=== PATIENT | male | born 1950 | race Caucasian/White ===

== ENCOUNTER 2020-02-19 13:28 | Outpatient (CLI) | payer OTHER, SELFPAY ==
--- NOTE | ~2020-02-19 | US_ITS ---
US renal BI 02/19/2020 14:23 Procedure: Realtime transabdominal ultrasound of the kidneys and bladder. Indication: Kidney disease Comparison: Ultrasound dated 12/27/2010 Findings: Renal echotexture is normal bilaterally without hydronephrosis, or renal calculus. There ar e multiple bilateral renal cysts measuring up to 7.1 cm and the right kidney and 2.6 cm and the left kidney. The right kidney measures 11.6 cm and left kidney measures 11.1 cm. Bladder within normal li mits. Impression: 1: Multiple bilateral renal cysts. Reviewed, dictated and finalized at location A. Impression: 1: Multiple bilateral renal cysts.
== END 2020-02-19 13:29 | disposition home or self-care (01) ==
PROVIDERS: PCP Emergency Medicine; Visit Provider Internal Medicine Nephrology
DX: N18.3 Chronic kidney disease, stage 3 (moderate) (principal); N28.1 Cyst of kidney, acquired
CPT/HCPCS: 76775

== ENCOUNTER 2020-03-26 09:21 | Emergency (ER) | payer OTHER, SELFPAY ==
[2020-03-26 09:43] VITALS: BP 138/90; PULSE 64; RESP 16; TEMP 37.1; O2SAT 99
--- NOTE | 2020-03-26 09:59 | ED.GENADULT ---
HPI - General Adult General Chief complaint: Eye Problems Stated complaint: REDNESS BILATERAL EYES Time Seen by Provider: 03/26/20 10:01 Source: patient and RN notes reviewed Mode of arrival: ambulatory Limitations: no limitations History of Present Illness HPI narrative: This is a 70 years old male presented office for evaluation of bilateral eyelids redness and swelling for a week.Worse this morning. He tried Claritin D for his symptoms with no relief. He tried to call his doctor who could not get him in. Denies visual changes. He admits to wearing glasses for reading only. Denies sick contact. Related Data Home Medications Medication Instructions Recorded Confirmed clotrimazole 1 % topical cream 1 applic TOPICAL Q12H 08/06/19 03/26/20 fluocinonide 0.05 % topical 1 applic TOPICAL BID 08/06/19 03/26/20 ointment fluticasone propionate 50 1 spray NASAL DAILY 08/06/19 03/26/20 mcg/actuation nasal spray,suspension olmesartan 40 mg tablet 40 mg PO DAILY 08/06/19 03/26/20 testosterone cypionate 100 mg/mL 50 mg IM WEEKLY ml 08/06/19 03/26/20 intramuscular oil zolpidem 10 mg tablet 10 mg PO ONCE tablet 08/06/19 03/26/20 Allergies Allergy/AdvReac Type Severity Reaction Status Date / Time No Known Allergies Allergy Verified 03/26/20 10:04 Review of Systems Review of Systems: Narrative: CONSTITUTIONAL: Denies fever EYES: Denies visual changes or discharge. Reports bilateral upper and lower eyelids red, itchy ENT: Denies rhinorrhea, congestion, sore throat, otalgia. CARDIOVASCULAR: Denies chest pain, palpitation RESPIRATORY: Denies dyspnea, wheezing, cough GASTROINTESTINAL: Denies abdominal pain, nausea, vomiting SKIN: Denies rash MUSCULOSKELETAL: Denies acute back pain NEUROLOGIC: Denies lightheaded All other systems reviewed are negative, except as documented in HPI. [facility] Past Medical History Medical History (Updated 03/26/20 @ 10:15 by SREEKANTH Zarate) CKD (chronic kidney disease), stage III HLD (hyperlipidemia) HTN (hypertension) Hypogonadism Family History Family History Sibling Acute myocardial infarction Family history of malignant neoplasm Father Family history of kidney disease, Onset Age: 58 Social History Social History Smoking status: Former smoker Smoking end date: 08/12/80 Gender identity (if verbalized by the patient): Male Comments At time of signature, I agree with nursing past medical, surgical, social and family history. There is no relevant family history pertinent to the presenting complaint. Exam Narrative: Exam Narrative: GENERAL: This is a well-nourished, well-developed patient, in no apparent distress. EYES: PERRL. EMOI. Sclera clear/white. Bilateral upper and lower lids noted erythema, edematous without tenderness to palpation. Vision is grossly intact. EARS: External ears normal, auditory canals clear and without drainage, TMs normal without perforation, fluid level noted. Hearing grossly intact. NOSE: External nose normal with no obvious nasal discharge, nares without redness, no rhinorrhea. THROAT: Mucous membranes moist, posterior pharynx clear. NECK: Neck supple, non-tender without lymphadenopathy, masses or thyromegaly. CARDIOVASCULAR: Regular rate and rhythm without murmurs, gallops, or rubs. RESPIRATORY: Clear to auscultation. Breath sounds equal bilaterally. No wheezes, rales, or rhonchi. GASTROINTESTINAL: Abdomen soft, non-tender, nondistended. Bowel sounds are active. No hepato-splenomegaly, or palpable masses. No guarding. SKIN: warm, intact with no suspicious lesions or rash, good texture and turgor. NEURO: awake, alert, and oriented to person, place and time. There were no obvious focal neurologic abnormalities. Steady gait Chanel Coma Scale Eye Opening: Spontaneous 4 Chanel Coma Scale Motor: Obeys Commands 6 [place] C
== END 2020-03-26 10:23 | disposition home or self-care (01) ==
PROVIDERS: Emergency Provider Nurse Practitioner; PCP Emergency Medicine
DX: H02.845 Edema of left lower eyelid (principal); H02.844 Edema of left upper eyelid; H02.842 Edema of right lower eyelid; H02.843 Edema of right eye, unspecified eyelid; Z87.891 Personal history of nicotine dependence; I12.9 Hypertensive chronic kidney disease with stage 1 through stage 4 chronic kidney disease, or unspecified chronic kidney disease; N18.3 Chronic kidney disease, stage 3 (moderate); E78.5 Hyperlipidemia, unspecified
CPT/HCPCS: 99213; G0463

== ENCOUNTER 2023-03-29 10:00 | Outpatient (CLI) | payer OTHER, SELFPAY ==
[2023-03-29 18:28] LABS: Cholesterol 189 mg/dL (0-200); HDL Direct 31 mg/dL; Triglycerides 122 mg/dL (<150)
[2023-03-29 18:39] LABS: LDL Cholesterol Direct 126 mg/dL
[2023-03-29 18:57] LABS: Prostate Specific Antigen 4.4 ng/mL (< OR = 4.0)
[2023-04-02 09:16] LABS: Apolipoprotein B 104 mg/dL (<90)
== END 2023-03-29 10:01 | disposition home or self-care (01) ==
PROVIDERS: PCP Internal Medicine; Visit Provider Internal Medicine
DX: N18.30 Chronic kidney disease, stage 3 unspecified (principal); E78.5 Hyperlipidemia, unspecified; Z12.5 Encounter for screening for malignant neoplasm of prostate
CPT/HCPCS: 36415; 80061; 82172; 84153; G0103

== ENCOUNTER 2023-04-02 09:12 | Outpatient (CLI) | payer OTHER, SELFPAY ==
[2023-04-02 15:25] LABS: Kit Draw Collected
== END 2023-04-02 09:13 | disposition home or self-care (01) ==
PROVIDERS: PCP Internal Medicine; Visit Provider Emergency Medicine
DX: N18.30 Chronic kidney disease, stage 3 unspecified (principal); E78.5 Hyperlipidemia, unspecified; Z12.5 Encounter for screening for malignant neoplasm of prostate
CPT/HCPCS: 36415

== ENCOUNTER 2023-07-23 14:49 | Emergency (ER) | payer OTHER, SELFPAY ==
--- NOTE | ~2023-07-23 | CT_ITS ---
EXAMINATION: CT thoracic spine wo con DATE: 07/23/2023 19:11 INDICATION: pain tenderness . TECHNIQUE: Computed tomography (CT) of the thoracic spine was performed without intravenous contrast. The dose-length product was 953.39 mGy-cm. COMPARISON: None FINDINGS: Vertebral body alignment intact. Vertebral body heights preserved. Multilevel degenerative disc disea se and facet arthropathy. No traumatic malalignment or fracture. Visualized lung parenchyma is clear. 1.5 x 0.7 x 15.1 cm left posterior mass/hyperdensity in the spinal canal, spanning the first image i n the series, at the level of C5, down to the level of T5, causing moderate-severe central stenosis. Incompletely visualized simple left renal cyst measuring at least 8.5 cm multiple bilateral renal cys ts. Retained contrast. Right renal atrophy. Severe right caliectasis mild coronary artery calcificati on. Edematous changes in the lungs. IMPRESSION: No acute fracture or traumatic malalignment in the thoracic spine. Left posterior spinal canal mass/hyperdensity, extending from C5 to T5, superior extent not included in the [id number]. Recommend MRI of the cervical and thoracic spine without and with contrast for further evaluation. Right hydronephrosis and renal atrophy. Multiple right renal cysts measuring at least up to 8.5 cm on the right. Pulmonary edema. Reviewed, dictated and finalized at location K. P CLIPPER IMPRESSION: No acute fracture or traumatic malalignment in the thoracic spine. Left posterior spinal canal mass/hyperdensity, extending from C5 to T5, superio r extent not included in the [id number]. Recommend MRI of the cervical and t horacic spine without and with contrast for further evaluation. Right hydronephrosis and renal atrophy. Multiple right renal cysts measuring at least up to 8.5 cm on the right. Pulmonary edema.
--- NOTE | ~2023-07-23 | CT_ITS ---
EXAMINATION: CT brain wo con DATE: 07/23/2023 15:09 INDICATION: weakness to left arm and leg . TECHNIQUE: Computed tomography (CT) of the head was performed without intravenous contrast. The mA wa s adjusted according to patient size. Iterative reconstruction technique was employed. The dose-lengt h product was 605.33 mGy-cm. COMPARISON: None. FINDINGS: No acute intracranial hemorrhage or extra-axial fluid collection. No hydrocephalus, mass, or herniation. No acute ischemic infarct. Unremarkable dural venous sinus attenuation. No acute osseous abnormality. The aerated spaces are clear. IMPRESSION: No acute intracranial process. Reviewed, dictated and finalized at location K. AMMUNITION INSPECTOR
--- NOTE | ~2023-07-23 | CT_ITS ---
EXAMINATION: CTA brain carotid DATE: 07/23/2023 18:32 INDICATION: L weakness TECHNIQUE: Computed tomographic angiography (CTA) of the head and neck was performed with 100 mL Omni paque-350 intravenous contrast. Automated exposure control and iterative reconstruction technique wer e employed. The dose-length product was 1101.35 mGy-cm. Maximum intensity projection and volume rend ered 3D-reconstructions were created by the technologist on a separate workstation. COMPARISON: CT brain, same date. FINDINGS: CTA HEAD: No large vessel occlusion, aneurysm, high flow vascular malformation, nidus or extravasation. Mild ca lcifications in the bilateral cavernous carotids without significant stenosis. Somewhat attenuated fl ow in the posterior circulation, with small caliber bilateral vertebral arteries and basilar artery. Persistent origin of the right posterior cerebral artery. Majority of flow to the posterior cir culation is via the bilateral posterior communicating arteries. Moderate short segment stenosis in th e proximal aspect of the right intradural vertebral artery. CTA NECK: Aortic arch and proximal great vessels: Bovine arch. Mild arch calcification. Right common carotid, carotid bifurcation, and internal carotid artery: Mild calcified plaque.There i s 0% stenosis of the proximal right internal carotid artery relative to normal distal artery lumen di ameter (NASCET criteria). Left common carotid, carotid bifurcation, and internal carotid artery: No plaque.There is 0% stenosis of the proximal left internal carotid artery relative to normal distal artery lumen diameter (NASCET criteria). Vertebral arteries: Diffuse reduction in caliber in the right vertebral artery. Absent flow in the ri ght vertebral artery between C1 and C3, with distal reconstitution. Other findings: Likely edematous changes in the lungs. IMPRESSION: No large vessel intracranial occlusion. Absent flow in the right vertebral artery between C1 and C3. Diffusely narrow caliber of the right ve rtebral artery, presumably congenital, noting that dissection cannot be entirely excluded. No significant carotid artery stenosis. Reviewed, dictated and finalized at location K. RTISING DISPATCH CLERK IMPRESSION: No large vessel intracranial occlusion. Absent flow in the right vertebral artery between C1 and C3. Diffusely narrow c aliber of the right vertebral artery, presumably congenital, noting that dissec tion cannot be entirely excluded. No significant carotid artery stenosis.
--- NOTE | ~2023-07-23 | XR_ITS ---
EXAM: XR shoulder LT min 2V DATE: 07/23/2023 18:42 HISTORY: Pain IS NON SPECIFIC TO LEFT SHOULDER . COMPARISON: 12/19/2018. FINDINGS: Normal mineralization. No fracture or dislocation. No lytic or blastic lesion. Mild polyar ticular osteoarthritis. No erosion or periosteal change. Low volume and possible vascular congestion in the left lung. IMPRESSION: No acute osseous finding in the left shoulder. Possible pulmonary vascular congestion nohemy stephen artifact from low volumes and crowding. Reviewed, dictated and finalized at location K. R ENGRAVER IMPRESSION: No acute osseous finding in the left shoulder. Possible pulmonary v ascular congestion versus artifact from low volumes and crowding.
--- NOTE | ~2023-07-23 | XR_ITS ---
EXAMINATION: XR chest 1V INDICATION: Left-sided weakness TECHNIQUE: AP view of the chest is obtained. COMPARISON: None available FINDINGS: The lung volumes are low. The lungs are free of acute opacities. No pleural effusion or pne umothorax. The cardiomediastinal silhouette is normal. There is moderate osteoarthritis of the should ers. IMPRESSION: 1. No acute cardiopulmonary abnormality. Reviewed, dictated and finalized at location L. TECH
[2023-07-23 14:52] VITALS: BP 199/91; PULSE 63; RESP 18; TEMP 36.2; O2SAT 98
--- NOTE | 2023-07-23 14:56 | ECG_ITS ---
Measurements Intervals [place] Rate: 57 P: 93 MO: 179 QRS: 20 QRSD: 82 T: 84 QT: 410 QTc: 402 Interpretive Statements SINUS BRADYCARDIA NONSPECIFIC ST & T-WAVE ABNORMALITY ABNORMAL ECG NO PREVIOUS ECG AVAILABLE FOR COMPARISON Electronically Signed On 07-24-2023 10:33:03 EXPERIMENTAL MACHINIST by Bassem Hodge M.D.
[2023-07-23 15:29] LABS: Basophils Percent Auto 0.2 % (0.2-1.2); Eosinophils Percent Auto 0.2 % (0-4.4); Hematocrit 43.7 % (42.0-52.0); Hemoglobin 14.6 g/dL (14.0-18.0); Immature Granulocyte Absolute 0.06 K/mm3 (0.00-0.031); Immature Granulocyte Percent A 0.5 % (0-0.5); Lymphocytes Percent Auto 9.1 % (18.3-44.2); Mean Corpuscular HGB Conc 33.4 g/dl (32-36); Mean Corpuscular Volume 98.9 fl (80-100); Mean Platelet Volume 9.1 fl (7.4-10.4); Monocytes Absolute Auto 0.5 K/mm3 (0.1-0.6); Monocytes Percent Auto 3.4 % (2.6-8.5); Neutrophils Absolute Auto 11.4 K/mm3 (1.3-6.7); Neutrophils Percent Auto 86.6 % (45.5-73.1); Platelet Count Result 192 k/mm3 (150-375); Red Blood Count 4.42 M/mm3 (4.6-6.20); Red Cell Distribution Width 13.8 % (11.5-14.5); White Blood Count 13.1 K/mm3 (4.5-10.0)
[2023-07-23 15:37] LABS: Alanine Aminotransferase 45 U/L (6-50); Albumin Level 4.6 g/dL (3.5-5.1); Alkaline Phosphatase 100 U/L (38-126); Anion Gap 8 mmol/L (8-16); Aspartate Amino Transferase 39 U/L (17-59); Bilirubin,Total 1.5 mg/dL (0.2-1.3); Blood Urea Nitrogen 20 mg/dL (9-20); Calcium 9.6 mg/dL (8.4-10.2); Carbon Dioxide 24 mmol/L (22-30); Chloride 108 mmol/L (98-107); Estimated CRCL calculation 33 ml/min; Estimated Glomerular Filt Rate 40; Glucose 113 mg/dL (65-110); Sodium 140 mmol/L (137-145)
[2023-07-23 15:45] LABS: Prothrombin Time 13.1 Seconds (11.1-14.7)
[2023-07-23 15:46] LABS: Partial Thromboplastin Time 25.3 SECONDS (22.3-36.8)
[2023-07-23 15:49] LABS: Troponin I < 0.012 ng/mL (0.000-0.034)
--- NOTE | 2023-07-23 17:05 | PC.NURSE ---
pts up to desk stating they have been waiting 3 hours. made aware it has been 2 and dept has been busy all day. family then wanting to know why it so cold in here. this morning show producer told here its comfortable in here. family member walks away stating she has no answers for me . made aware that due to this being an emergency dept i was unable to provide her with a wait time.
[2023-07-23 17:36] VITALS: BP 165/84; PULSE 60; RESP 20; O2SAT 100
[2023-07-23 17:51] LABS: Glucose Point of Care 96 mg/dl (65-105)
--- NOTE | 2023-07-23 17:52 | ED.WEAKNESS ---
HPI - Weakness General Chief complaint: Weakness <Lavelle Bloom MD - Last Filed: 07/23/23 19:15> Stated complaint: left sided weakness since 829 <Lavelle Bloom MD - Last Filed: 07/23/23 19:15> Time Seen by Provider: 07/23/23 17:49 <Lavelle Bloom MD - Last Filed: 07/23/23 19:15> History of Present Illness HPI Narrative: Patient is a 73-year-old male who presents to the emergency department at this evening after his primary care physician sent him an for a CT scan to evaluate for a stroke. Patient went to go see his primary care physician today and states that at about 830 in the morning when he woke up and tried to get out of bed he had a sudden onset left shoulder pain which radiated across his back. is currently out against when the patient tried to get out of bed he was having a difficult time walking due to weakness in his left lower extremity. This is new for him and states that he has never had any similar symptoms in the past. Patient denies any recent falls or trauma and denies any blood thinner use. Patient denies any chest pain, shortness of breath, nausea, vomiting, abdominal pain, dysuria, hematuria, constipation, diarrhea, melena, hematochezia, fevers or chills. Patient also denies any headaches, dizziness, lightheadedness, blurry visions, numbness and or tingling. There are no other modifying, alleviating, or precipitating factors at this time. <Lavelle Bloom MD - Last Filed: 07/23/23 19:15> Related Data Allergies/Adverse reactions: Allergies Allergy/AdvReac Type Severity Reaction Status Date / Time No Known Allergies Allergy Verified 07/23/23 14:03 <Lavelle Bloom MD - Last Filed: 07/23/23 19:15> Review of Systems Review of Systems: All systems are reviewed and are negative unless stated otherwise in the HPI. <Lavelle Bloom MD - Last Filed: 07/23/23 19:15> PMFSH Past Medical History Medical History: Medical History Allergic reaction CKD (chronic kidney disease), stage III CKD (chronic kidney disease), stage III Dermatitis Dermatitis Elevated PSA, less than 10 ng/ml Erectile dysfunction Extraction of tooth needed HLD (hyperlipidemia) HTN (hypertension) Hypogonadism Mild cognitive impairment Screening PSA (prostate specific antigen) Seizure 1973 Shoulder pain, right <Lavelle Bloom MD - Last Filed: 07/23/23 19:15> Family History Family History: Family History Sibling Acute myocardial infarction Family history of malignant neoplasm Father Family history of kidney disease, Onset Age: 58 <Lavelle Bloom MD - Last Filed: 07/23/23 19:15> Social History Social History: Social History Smoking status: Former smoker Smoking end date: 08/12/80 Alcohol intake: never Lack of Food: Never True Current Housing: I Have Housing Concerned About Future Housing: No Difficulty Paying Gas/Electric Bills: No Difficulty Paying for Meds: No Currently Unemployed: No Education: Bachelor's Degree Difficulty w/ Childcare or Family Care: No Gender identity (if verbalized by the patient): Male <Lavelle Bloom MD - Last Filed: 07/23/23 19:15> Exam Narrative: General: Alert, awake, afebrile, in no acute distress. HEENT: PERRL, no rhinorrhea, no post nasal drip, oropharynx clear. Neck: Trachea midline, no JVD, no lymphadenopathy. Cardiovascular: Regular rate and rhythm, no murmurs, rubs or gallops, no peripheral edema. Respiratory: Clear to auscultation bilaterally, no tachypnea, no wheezing, no rhonchi, no rubs, no respiratory distress. Abdomen: Soft, nontender, nondistended, no rebound, no guarding, no peritoneal signs. Musculoskeletal: No joint swelling or deformity, normal muscle tone, intact ROM at the left shou
[2023-07-23 19:51] VITALS: BP 157/82; PULSE 62; RESP 20; O2SAT 96
[2023-07-23 20:51] VITALS: BP 148/82; PULSE 73; RESP 17; TEMP 36.8; O2SAT 96
--- NOTE | 2023-07-23 21:40 | P.PNCROSS_ITS ---
Event Note Event Note Event Note: A 73-year-old male who presents to the emergency department at this evening aft er his primary care physician sent him for a CT scan to evaluate for a stroke.? Patient went to go see his primary care physician today and states that at about 830 in the morning when he woke up and tried to get out of bed he had a sudden onset left shoulder pain which radiated across his back.? This is new for him and states that he has never had any similar symptoms in the past.? Patient denies any recent falls or trauma and denies any blood thinner use.? Patient denies any chest pain, shortness of breath, nausea, vomiting, abdominal pain, dysuria, hematuria, constipation, diarrhea, melena, hematochezia, fevers or chills.? Patient also denies any headaches, dizziness, lightheadedness, blurry visions, numbness and or tingling.? There are no other modifying, alleviating, or precipitating factors at this time.?? He was evaluated in the ER thought to have had a TIA, as his symptoms has improved, and I was called to admit this patient for Neurology review. During my encounter with the patient, he said he feels somewhat better, and has been able to walk down the hallway with less difficulty, however he was too weak on the left side especially the left lower extremity. General: Alert, awake, afebrile, in no acute distress. HEENT: PERRL, no rhinorrhea, no post nasal drip, oropharynx clear. Neck: Trachea midline, no JVD, no lymphadenopathy. Cardiovascular: Regular rate and rhythm, no murmurs, rubs or gallops, no peripheral edema. Respiratory: Clear to auscultation bilaterally, no tachypnea, no wheezing, no rhonchi, no rubs, no respiratory distress. Abdomen: Soft, nontender, nondistended, no rebound, no guarding, no peritoneal signs. Musculoskeletal: No joint swelling or deformity, normal muscle tone, intact ROM at the left shoulder joint. Skin: No rashes or petechia, no signs of infection. Psychiatric: Alert and oriented, normal behavior and judgment for situation. Neurological: Alert and oriented to person, place, and time.? Follows all commands.?strength is 4/5 on left extremities and 5/[address] scan of the thoracic spine showed Left posterior spinal canal mass/hyperdensity, extending from C5 to T5, superior extent not included in the [id number]. Recommend MRI of the cervical and thoracic spine without and with contrast for further evaluation. I was called by the ED physician prior to my admission orders that there is high suspicion of epidural abscess on this patient baseed thoracic spine CT scan findings and patient will be transferred to high level of care.
[2023-07-23] MEDS: cefTRIAXone 2 GM/NS 100 ML 2 GM/100 ML BAG IVPB (23:27)
[2023-07-24] MEDS: VANCOMYCIN 2,000 MG/NS 500 ML 2,000 MG/500 ML BAG 250 MG IVPB (00:32)
== END 2023-07-24 00:46 | disposition short-term general hospital (02) ==
LOC: ANHED 20:26 → ANH3MEDSUR 22:02
PROVIDERS: Emergency Medicine; Emergency Provider Emergency Medicine; PCP Internal Medicine
DX: I63.9 Cerebral infarction, unspecified (principal); M25.512 Pain in left shoulder; R93.89 Abnormal findings on diagnostic imaging of other specified body structures; I12.9 Hypertensive chronic kidney disease with stage 1 through stage 4 chronic kidney disease, or unspecified chronic kidney disease; N18.30 Chronic kidney disease, stage 3 unspecified
CPT/HCPCS: 36415; 70450; 70496; 70498; 71045; 72128; 73030; 80053; 82948; 84484; 85025; 85610; 85730; 87040; 93005; 96365; 99285; J0696; J3370; Q9967

== ENCOUNTER 2023-11-01 07:36 | Outpatient (CLI) | payer OTHER, SELFPAY ==
--- NOTE | ~2023-11-01 | NM_ITS ---
EXAMINATION: NM bone scan whole body DATE: 11/01/2023 11:12 INDICATION: Prostate cancer TECHNIQUE: 25.3 mCi Tc-99m HDP was administered intravenously. Delayed whole-body scintigrams were o btained. COMPARISON: CT dated 11/01/2023 FINDINGS: Likely degenerative joint centered uptake at the bilateral acromioclavicular joints, elbows and at th e bilateral hands and wrists. Additional mild likely degenerative disc centered uptake at L5-S1 with corresponding severe disc height loss and degenerative endplate changes on prior CT. There is promine nt accumulation of activity with shallow horseshoe configuration at the right abdomen which likely re sults from right hydronephrosis at the periphery of a large right renal cyst. No bone lesions suspici ous for metastatic disease. IMPRESSION: 1. No bone lesions suspicious for metastatic disease. 2. Accumulation of activity in the distorted right renal collecting system consistent with hydronephr osis likely related to mass effect from the large right renal cyst. Reviewed, dictated and finalized at location A. IMPRESSION: 1. No bone lesions suspicious for metastatic disease. 2. Accumulation of activity in the distorted right renal collecting system cons istent with hydronephrosis likely related to mass effect from the large right r enal cyst.
--- NOTE | ~2023-11-01 | CT_ITS ---
CT of the Abdomen and Pelvis: Indication: Prostate cancer Technique: 2.5 mm axial scans were obtained through the abdomen and pelvis following intravenous adm inistration of 100 cc of Omnipaque 350. Dose reduction technique was used on this scan by utilizing a utomated exposure control and iterative reconstruction technique. The dose-length product (DLP) was 5 89.15 mGy-cm. Findings: Scans through the lung bases are unremarkable. The liver, spleen, pancreas, gallbladder, adrenal glands are within normal limits. Bilateral renal cy sts are present. There are atherosclerotic calcifications of the aorta. No lymphadenopathy. No bowel obstruction or bowel wall thickening. There is no evidence to suggest acute appendicitis. Images through the pelvis were performed. Urinary bladder unremarkable. No pelvic mass seen. No ascit es. Prostate gland mildly enlarged. Intraosseous hemangioma of L1 noted. There are bilateral L5 pars interarticularis defects, with minim al grade 1 anterolisthesis of L5 over S1. Impression: No evidence for metastatic disease. Enlarged prostate gland. Bilateral L5 pars interarticularis defects. Reviewed, dictated and finalized at location . Impression: No evidence for metastatic disease. Enlarged prostate gland. Bilateral L5 pars interarticularis defects.
[2023-11-01 08:05] LABS: Estimated Glomerular Filt Rate 37
== END 2023-11-01 07:37 | disposition home or self-care (01) ==
PROVIDERS: PCP Internal Medicine; Visit Provider Urology
DX: C61 Malignant neoplasm of prostate (principal)
CPT/HCPCS: 74177; 78306; A9503; Q9967

== ENCOUNTER 2025-03-30 09:57 | Outpatient (CLI) | payer OTHER, SELFPAY ==
--- NOTE | ~2025-03-30 | US_ITS ---
EXAM: RENAL ULTRASOUND HISTORY: N18.32 - Chronic kidney disease, stage 3b COMPARISON: 02/19/2020 FINDINGS: RIGHT KIDNEY: 12.4 x 7.1 x 7.2 cm. The parenchyma of the right kidney is increased in echogenicity. No bulky renal calculi. Multiple rounded anechoic avascular foci detected. The largest within the lower pole measures 8.5cm in greatest dimension. LEFT KIDNEY: 10.8 x 6.5 x 5.3 cm No hydronephrosis or renal calculi. The parenchyma of the left kidney is increased in echogenicity. A single rounded avascular anechoic focus is present within the interpolar region of the left kidney measuring 33 mm in greatest dimension. BLADDER: The bladder is minimally distended, and otherwise unremarkable. Despite prolonged interrogation, neither ureteral jet was visualized IMPRESSION: Redemonstration of significant right-sided hydronephrosis. No right-sided renal calculi. No left-sided hydronephrosis or renal calculi. Findings suggesting medical renal disease. Redemonstration of simple cysts within the bilateral kidneys, as detailed above. Reviewed, dictated and finalized at location A. IMPRESSION: Redemonstration of significant right-sided hydronephrosis. No right-sided renal calculi. No left-sided hydronephrosis or renal calculi. Findings suggesting medical renal disease. Redemonstration of simple cysts within the bilateral kidneys, as detailed above .
== END 2025-03-30 09:58 | disposition home or self-care (01) ==
LOC: MICIMG 09:57
PROVIDERS: PCP Internal Medicine; Visit Provider Internal Medicine Nephrology
DX: N18.32 Chronic kidney disease, stage 3b (principal); N13.30 Unspecified hydronephrosis; N28.1 Cyst of kidney, acquired
CPT/HCPCS: 76775